=== PATIENT | female | born 1950 | race African-American/Black ===

== ENCOUNTER 2016-08-09 06:03 | Emergency (ER) | payer OTHER ==
[~2016-08-09] VITALS: Ht 157.5 cm; Wt 107.0 kg
[2016-08-09 06:05] VITALS: Ht 157.5 cm; Wt 107.0 kg
--- NOTE | 2016-08-09 07:22 | ERD ---
ER Documentation Chief Complaint Date/Time DATE: 08/09/16 TIME: 07:13 Chief Complaint scaterred body rashes on and off x 2 weeks HPI 65-year-old female with a history of hypertension and prediabetes presents to the emergency department complaining of a 2 month history of intermittent itchy rash. Patient states she first noticed the rash in May and believed it was due to an allergic reaction. Patient is been treating her rash with Benadryl with sufficient relief at home. Patient concerned however as the rash continues to return intermittently. Patient notes the rash along her waistline and bra line and describes it as a 6 out of 10 constant itchiness. Patient states that she recently has been seen by her primary care physician who prescribed her calamine lotion which has also helped to control her symptoms. Patient states she was also prescribed an antihypertensive medication that she does not remember the name of although she states it started with an L. Patient states that soon after beginning the medication she experienced right- sided facial swelling and lip swelling so she discontinued the medication herself. Patient denies any headache, dizziness, nausea, vomiting, diarrhea, abdominal pain, fever, chest pain, shortness of breath, or difficulty swallowing. ROS All systems reviewed and are negative except as per history of present illness. Allergies Allergies: Coded Allergies: No Known Allergy (Unverified , 08/09/16) PMhx/Soc History of Surgery: Yes (knee surgery due to fall) Anesthesia Reaction: No Hx Neurological Disorder: No Hx Respiratory Disorders: No Hx Cardiac Disorders: No Hx Psychiatric Problems: No Hx Alcohol Use: Yes (socially) Hx Substance Use: No Hx Tobacco Use: No Smoking Status: Never smoker Physical Exam Vitals Vital Signs Date Time Temp Pulse Resp B/P Pulse Ox O2 Delivery O2 Flow Rate FiO2 08/09/16 06:05 97.8 83 20 172/80 100 Physical Exam Const: Well-developed, well-nourished, in no acute distress Head: Atraumatic Eyes: Normal Conjunctiva ENT: Normal External Ears, Nose and Mouth. No evidence of angioedema Neck: Full range of motion..~ No meningismus. Resp: Clear to auscultation bilaterally Cardio: Regular rate and rhythm, no murmurs Abd: Soft, non tender, non distended. Normal bowel sounds Skin: Mildly erythematous urticarial rash noted along bra line of anterior and lateral chest as well as lower abdomen along the pattern of her pant line. No open wounds, no evidence of deep abscess formation, no overlying cellulitis. No petechiae Back: No midline or flank tenderness Ext: No cyanosis, or edema Neur: Awake and alert Psych: Normal Mood and Affect Procedures/MDM 65-year-old female presents with complaints of intermittent itchy rash 2 months. Patient's clinical picture consistent with contact dermatitis and urticarial rash. At this time I have low suspicion for respiratory compromise, angioedema , anaphylaxis, cellulitis, abscess, serious bacterial infection, systemic infection, sepsis. Patient received 1 dose of prednisone while in the emergency department. Patient to continue antihistamines and prednisone. Patient to follow-up with primary care physician for referral to health care marketing specialist if symptoms continue. I will place the patient on an alternative antihypertensive medication, amlodipine, although I stressed the importance of following up with her primary care physician for proper management of her hypertension. Based on patient's history of present illness and physical examination the decision was made to discharge. The patient was re-evaluated after ED treatment and stabilizing measures, and symptoms have improved. There is no evidence of life threatening injuries or illnesses at this time. On re-examination, patient resting in no distress, stable vital signs, reports feeling better and safe for discharge with outpatient follow up with PMD in 1-2 days. Patient given return precautions. Departure Diagnosis: Primary Impression: Rash and other nonspecific skin eruption Additional Impressions: Rash Hives Contact dermatitis Contact dermatitis type: allergic Contact dermatitis trigger: unspecified trigger Qualified Code: L23.9 - Allergic contact dermatitis, unspecified trigger Hypertension Hypertension type: essential hypertension Qualified Code: I10 - Essential hypertension DENICE GOSS PA-C Aug 09, 2016 07:22
[2016-08-09] MEDS ORDERED: HC.5O30 TOP (07:25)
[2016-08-09] MEDS ORDERED: PRED20TA PO (07:25)
[2016-08-09] MEDS ORDERED: IBUP-1542 PO (07:25)
[2016-08-09] MEDS ORDERED: CETI10CA PO (07:25)
[2016-08-09] MEDS ORDERED: AMLO-147 PO (07:26)
[2016-08-09] MEDS ORDERED: predniSONE 20 MG TAB PO ONE (07:30)
== END 2016-08-09 07:45 | disposition home or self-care (01) ==
LOC: FTE 06:03
DX: R21 Rash and other nonspecific skin eruption (principal); L23.9 Allergic contact dermatitis, unspecified cause; I10 Essential (primary) hypertension
CPT/HCPCS: 99284; J7512